=== PATIENT | female | born 1960 | race African-American/Black ===

== ENCOUNTER 2017-06-04 00:59 | Observation (INO) | payer BC ==
[~2017-06-04] VITALS: Ht 162.6 cm; Wt 100.0 kg
--- NOTE | ~2017-06-04 | HEMODYNAMI ---
PATIENT:JAYSHREE SMITH MEDICAL RECORD: [id number] : 64 [facility] AD[facility]ION DATE: 06/04/17 Generatedon:06/04/201715:43 Patient name: JAYSHREE SMITH Patient #: [id number] SSN: : 1960 Date of study: 06/04/2017 Page: Of Hemodynamic Procedure Report Patient Data Patient Demographics Procedure consent was obtained First Name: JAYSHREE Gender: Female Last Name: LUIS : 1960 [facility] Initial: D Age: 56 year(s) Patient #: [id number] Race: Black Additional ID: [id number] Contact details [address]: [address] [place] [address] State: [place] City: [place] Zip code: [address] Past Medical History Allergies Allergen Reaction Date Comments Reported Codeine 06/04/2017 Erythromycin 06/04/2017 Other allergy 06/04/2017 ultra Admission Admission Data Admission Date: 06/04/2017 Admission Time: 2:48 Room #: D.2115 Lab Results Lab Result Date: 06/04/2017 Lab Result Time: 0:00 Biochemistry Name Units Result Min Max BUN mg/dl 16 --(---*)-- 7 18 Creatinine mg/dl 0.7 --(*---)-- 0.6 1.3 CBC Name Units Result Min Max Hemoglobin g/dl 12.1 *-(----)-- 13.5 17.5 Procedure Procedure Types Cath Procedure Diagnostic Procedure LHC LHC w/Coronaries Miscellaneous Procedures Moderate Sedation up to 15 minutes Procedure Description Procedure Date Procedure Date: 06/04/2017 Procedure Start Time: 15:23 Procedure End Time: 15:42 Procedure Staff Name Function Gustavo Alexander MD Performing Physician Cathy Brown RN Nurse Jamir Harrington RT Monitor Carter Marroquin RT Scrub Procedure Data Cath Procedure Fluoroscopy Diagnostic fluoroscopy Total fluoroscopy Time: 1.1 time: 1.1 min min Diagnostic fluoroscopy Total fluoroscopy dose: 380 dose: 380 mGy mGy Contrast Material Contrast Material Type Amount (ml) Isovue 300 55 Entry Location Entry Primary Successful Side Size Upsize Upsize Entry Closure Succes sful Closure Location (Fr) 1 (Fr) 2 (Fr) Remarks Device Remarks Femoral Right 5 Fr Exoseal artery Diagnostic catheters Device Type Used For End Catheter Placement Cordis 5Fr JL 4.0 Left Coronary Catheter (MP) Angiography Cordis 5Fr 3DRC Catheter Right Coronary (MP) Angiography Cordis 5Fr Pigtail LV Angiography Catheter (MP) Procedure Complications No complications Procedure Medications Medication Administration Route Dosage Oxygen NC 2 l/min Lidocaine 2% added to field 20 Heparin Flush Bag added to field 2 bags (1000units/500ml NS) 0.9% NaCl I.V. 100 ml/hr Benadryl I.V. 25 mg Versed I.V. 0.5 mg Fentanyl I.V. 25 mcg Versed I.V. 0.5 mg Fentanyl I.V. 25 mcg Versed I.V. 0.5 mg Fentanyl I.V. 25 mcg Versed I.V. 0.5 mg Fentanyl I.V. 25 mcg Hemodynamics Rest HGB: 12.1 (g/dl) Heart Rate: 82 (bpm) Pressure Samples Time Site Value (mmHg) Purpose Heart Use Rate(bpm) 15:33 LV 132/-6,20 EDP 88 15:33 LV 127/-4,21 Snapshot 81 15:33 LV 126/-4,21 Snapshot 81 15:34 AO 135/73(100) Pullback 87 15:34 LV 139/-5,30 Pullback 87 Gradients Valve Time Site 1 Site 2 Mean SEP/DFP Peak To Heart Use (mmHg) (sec/min) Peak Rate (mmHg) (bpm) Aortic 15:34 LV AO 12 19 4 87 139/-5,30 135/73(100) Calculations Valve P-P Mean Valve Index Valve Source Name Gradient Area Flow (cm2) Aortic 4 12 4 12 Snapshots Pre Cath Intra NCS Post Cath Vital Signs Time Heart Resp SPO2 etCO2 [id number] NIBP (mmHg) Rhythm Pain Sedation Rate (ipm) (%) (mmHg) (mmHg) Status Level (bpm) 15:13:42 78 15 100 0 0 146/83(102) NSR 0 (11) 10(A) , No pain 15:17:54 83 16 100 0 0 160/90(109) NSR 0 (11) 10(A) , No pain 15:20:54 83 17 97 0 0 143/73(106) NSR 0 (11) 10(A) , No pain 15:25:06 76 15 100 0 0 149/83(100) NSR 0 (11) 9(A) , No pain 15:29:24 83 15 100 0 0 138/75(102) NSR 0 (11) 9(A) , No pain 15:33:40 87 16 100 0 0 142/71(102) NSR 0 (11) 10(A) , No pain 15:37:54 82 15 100 0 0 131/76(102) NSR 0 (11) 10(A) , No pain 15:42:02 100 0 0 146/84(96) NSR 0 (11) 10(A) , No pain Medications Time Medication Route Dose Verified Delivered Reason Notes Effe ctiveness by by 15:14:12 Oxygen NC 2 Gustavo Buffie used for l/min Benjamin Brown RN procedure 15:14:20 Lidocaine 2% added 20ml Gustavo Gustavo for local to vial Benjamin Alexander MD anesthetic field 15:14:26 Heparin Flush added 2 Gustavo Gustavo used for Bag to bags Benjamin Alexander MD procedure (1000units/500ml field NS) 15:14:35 0.9% NaCl I.V. 100 Gustavo Buffie Per ml/hr Benjamin Brown RN physician 15:14:51 Benadryl I.V. 25 mg Gustavo Buffie used for Benjamin Brown RN procedure 15:18:29 Versed I.V. 0.5 Gustavo Buffie for mg Benjamin Brown RN sedation 15:18:37 Fentanyl I.V. 25 Gustavo Buffie for mcg Benjamin Brown RN sedation 15:24:22 Versed I.V. 0.5 Gustavo Buffie for mg Benjamin Brown RN sedation 15:24:25 Fentanyl I.V. 25 Gustavo Buffie for mcg Benjamin Brown RN sedation 15:29:34 Versed I.V. 0.5 Gustavo Buffie for mg Benjamin Brown RN sedation 15:29:38 Fentanyl I.V. 25 Gustavo Buffie for mcg Benjamin Brown RN sedation 15:32:51 Versed I.V. 0.5 Gustavo Buffie for mg Benjamin Brown RN sedation 15:32:55 Fentanyl I.V. 25 Gustavo Morgan for mcg Benjamin Brown RN sedation Procedure Log Time Note 14:40:00 Carter Cara RT(R) sent for patient. Start room use. 14:45:03 Time tracking: Regular hours 14:45:09 Plan of Care:Hemodynamics will remain stable., Cardiac rhythm will remain stable., Comfort level will be maintained., Respiratory function will remain adequate., Patient/ family verbilizes understanding of procedure., Procedure tolerated without complication., Recovers from procedure without complications.. 15:02:51 Patient received from PCU to CCL 1 Alert and oriented. Tansferred to table in Supine position. 15:02:52 Warm blankets applied, and valarie hugger turned on for patient comfort. 15:02:53 Correct patient and procedure confirmed by team. 15:02:54 Signed procedure consent form obtained from patient. 15:02:55 ECG and BP/O2 sat monitors applied to patient. 15:12:34 Baseline sample Acquired. 15:12:34 Vital chart was started 15:12:37 Rhythm: sinus rhythm 15:12:38 Full Disclosure recording started 15:13:56 H&P Date Dictated: 06/04/2017 Within 30 days and on chart.. 15:13:58 Pre-procedure instructions explained to patient. 15:13:58 Pre-op teaching completed and patient verbalized understanding. 15:14:01 Family in waiting room. 15:14:03 Patient NPO since Midnight. 15:14:12 Oxygen 2 l/min NC was administered by Cathy Brown RN; used for procedure; 15:14:12 Patient allergic to Codeine 15:14:20 Lidocaine 2% 20ml vial added to field was administered by Gustavo Alexander MD; for local anesthetic; 15:14:26 Heparin Flush Bag (1000units/500ml NS) 2 bags added to field was administered by Gustavo Alxeander MD; used for procedure; 15:14:27 Patient allergic to Erythromycin 15:14:35 0.9% NaCl 100 ml/hr I.V. was administered by Cathy Brown RN; Per physician; 15:14:46 Patient allergic to Other allergyultram 15:14:50 Is the patient allergic to Iodine/contrast media? No. 15:14:51 Benadryl 25 mg I.V. was administered by Cathy Brown RN; used for procedure; 15:15:01 Is patient on blood thinner?No 15:15:03 Patient diabetic? No. 15:15:04 ----Pre-sedation anethsthesia assessment.---- 15:15:06 Previous problem with sedation/anesthesia? No ? 15:15:08 Snore? Yes 15:15:09 Sleep apnea? No 15:15:11 Deviated septum? No 15:15:12 Opens mouth fully? Yes 15:15:14 Sticks out tongue? Yes 15:15:16 Airway obstruction? No ? 15:15:20 Dentures? No ? 15:15:24 Pre procedure: right dorsailis pedis pulse 1+ Palpable, but thready & weak; easily obliterated 15:15:28 Patient pain scale 0/10 ?. 15:15:34 IV patent on arrival in right antecubital with 0.9% NaCl at 10ml/hr. 15:15:59 Lab Result : Creatinine 0.7 mg/dl 15:15:59 Lab Result : BUN 16 mg/dl 15:15:59 Lab Result : Hemoglobin 12.1 g/dl 15:16:02 Lab results completed and on chart. 15:16:05 Right groin area was prepped with chlora-prep and draped in sterile fashion 15:16:06 Alarms reviewed by R. N. 15:16:06 Sharps counted by scrub and verified by R.N. 15:16:09 --------ALL STOP TIME OUT------ 15:16:09 Final Timeout: patient, procedure, and site verified with staff and physician. All members of the team are in agreement. 15:16:11 Right groin site verified by team. 15:16:13 Physical assessment completed. ASA score P 2 - A patient with mild systemic disease as per Gustavo Alexander MD. 15:16:17 Sedation plan: IV Moderate Sedation Versed, Fentanyl 15:18:29 Versed 0.5 mg I.V. was administered by Cathy Brown RN; for sedation; 15:18:37 Fentanyl 25 mcg I.V. was administered by Cathy Brown RN; for sedation; 15:22:52 Zero performed for pressure channel P1 15:23:15 Use device set Femoral Dx 15:23:16 Acist Syringe opened to sterile field. 15:23:17 Bag Decanter opened to sterile field. 15:23:17 Medline Cath Pack opened to sterile field. 15:23:17 Terumo 5Fr Mercer Sheath opened to sterile field. 15:23:18 St Jevon 260cm J .035 wire opened to sterile field. 15:23:19 Acist Hand Control opened to sterile field. 15:23:19 Acist Manifold opened to sterile field. 15:23:20 Diagnostic Infinity 5Fr Multipack catheter opened to sterile field. 15:23:20 Tegaderm 4 x 4 opened to sterile field. 15:23:24 Procedure started. 15:23:28 Local anesthetic to right femoral artery with Lidocaine 2% by Gustavo Alexander MD.INITIAL ACCESS ONLY 15:23:37 A 5 Fr sheath was inserted into the Right Femoral artery 15:24:00 A Cordis 5Fr JL 4.0 Catheter (MP) was advanced over the wire and used for Left Coronary Angiography. 15:24:22 Versed 0.5 mg I.V. was administered by Cathy Brown RN; for sedation; 15:24:22 LCA angiography performed. 15:24:25 Fentanyl 25 mcg I.V. was administered by Cathy Brown RN; for sedation; 15:29:34 Versed 0.5 mg I.V. was administered by Cathy Brown RN; for sedation; 15:29:38 Fentanyl 25 mcg I.V. was administered by Cathy Brown RN; for sedation; 15:31:03 Catheter removed. 15:31:45 A Cordis 5Fr 3DRC Catheter (MP) was advanced over the wire and used for Right Coronary Angiography. 15:32:09 RCA angiography performed. 15:32:10 Catheter removed. 15:32:16 A Cordis 5Fr Pigtail Catheter (MP) was advanced over the wire and used for LV Angiography. 15:32:20 LV angiography performed. 15:32:22 LV gram done using RIGGS 15:32:25 LV hemodynamics recorded. 15:32:29 Injector settings: Ml/sec: 10, Volume: 20, 15:32:51 Versed 0.5 mg I.V. was administered by Cathy Brown RN; for sedation; 15:32:55 Fentanyl 25 mcg I.V. was administered by Cathy Brown RN; for sedation; 15:33:47 EF : 55 % 15:34:08 Catheter removed. 15:36:02 Contrast amount:Isovue 300 55ml. 15:36:40 Sheath removed intact; hemostasis achieved with Exoseal to the Right Femoral artery. 15:36:43 Procedure ended.(Physican Out) 15:37:12 Fluoroscopy time 01.10 minutes. 15:37:17 Fluoroscopy dose: 380 mGy 15:37:17 Flurop Dose total: 380 15:37:22 Sharps counted by scrub and verified by R.N. 15:37:23 Insertion/operative site no bleeding no hematoma. 15:37:26 Post-op/insertion site Right Femoral artery dressed using a 4 x 4 and Tegaderm. 15:37:29 Post right femoral artery:stable 15:37:36 Post Procedure Pulses reassessed and unchanged 15:37:38 Post procedure: right dorsailis pedis pulse 1+ Palpable, but thready & weak; easily obliterated. 15:37:54 Post procedure rhythm: sinus rhythm 15:42:10 Post procedure instruction explained to patient.Patient verbalizes understanding. 15:42:12 Procedure and supply charges have been captured, reviewed, submitted and are correct. 15:42:23 Cordis 5Fr Exoseal opened to sterile field. 15:42:29 Procedure Complication : No complications 15:42:32 Vital chart was stopped 15:42:33 See physician's report for complete and final results. 15:42:35 Report given to PCU. 15:42:37 Patient transfered to PCU with Bed. 15:42:39 Procedure ended. 15:42:39 Full Disclosure recording stopped 15:42:43 End room use (Document Last) Device Usage Item Name Manufacture Quantity Catalog Hospital Part Current Minimal Lo t# / Number Charge Number Stock Stock Serial# Code Acist Acist 1 31312 [id number] 053511 606697 20 Syringe [employer] Bag Microtek 1 2002S [id number] 40112 430078 5 Decanter [employer] Medline Cardinal 1 [id number] 34566 892652 5 Cath Pack CombaGroup Terumo 5Fr Terumo 1 [id number] 816812 809244 609293 [address] Jevon 1 434274 438107 771949 897029 30 260cm J .035 wire Acist Hand Acist 1 61326 690257 369841 641564 5 Control [employer] Inc Acist Acist 1 15188 601869 409503 829894 5 Manifold [employer] Diagnostic Cardinal 1 [id number] 553915 79788 931208 30 Inf[employer] 5Fr Multipack catheter Tegaderm 4 3M 1 1626W 513708 154080 936176 5 x 4 Cordis 5Fr Cardinal 1 926364 5 JL 4.0 Health Catheter (MP) Cordis 5Fr Cardinal 1 700972 5 3DRC Health Catheter (MP) Cordis 5Fr Cardinal 1 960750 5 Pigtail Health Catheter (MP) Cordis 5Fr Cardinal 1 EX500 374840 631824 481023 10 [employer] Signature Audit [place] Stage Time Signature Unsigned Intra-Procedure 06/04/2017 Jamir Harrington 3:43:41 PM RT(R) Signatures Monitor : Jamir Harrington RT Signature : Date : Time : [place] [id number] [facility] [place] [address]
[~2017-06-04 00:59] MED LIST: HYZAAR 50-12.51 TAB PO; LEVSIN/ANASP0.125 MG PO; ZOVIRAX400 MG
[2017-06-04 01:55] LABS: HEMATOCRIT 37.5 % (36.0-48.0); HEMOGLOBIN 12.1 g/dL (12-16); MCH 30.4 pg (26.0-34.0); MCHC 32.3 g/dL (31.0-37.0); MCV 94.2 fL (80.0-100.0); MEAN PLATELET VOLUME 10.4 fL (7.4-10.4); PLATELET COUNT 295 10x3/uL (130-400); RBC 3.98 10x6/uL (4.00-5.40); RDW 12.8 % (11.5-14.5); WBC 7.4 10x3/uL (4.8-10.8)
[2017-06-04 02:04] LABS: ALBUMIN 3.4 g/dL (3.4-5.0); ALKALINE PHOSPHATASE 71 U/L (46-116); ALT (SGPT) 21 U/L (10-68); BILIRUBIN - TOTAL 0.35 mg/dL (0.2-1.3); CALC OSMOLALITY 278 mosm/kg (275-300); CALCIUM 9.3 mg/dL (8.5-10.1); CARBON DIOXIDE 29.1 mmol/L (21.0-32.0); CHLORIDE - SERUM 102 mmol/L (98-107); CREATININE - SERUM 0.7 mg/dL (0.6-1.3); GLUCOSE 86 mg/dL (74-106); POTASSIUM - SERUM 3.8 mmol/L (3.5-5.1); PROTEIN - SERUM 7.5 g/dL (6.4-8.2); SODIUM 140 mmol/L (136-145); UREA NITROGEN 16 mg/dL (7-18); eGFR NON AFRICAN AMERICAN > 90 mL/min (90-120)
[2017-06-04 02:15] LABS: CHOL - HDL RATIO 3.7 ratio (2.3-4.1); CHOLESTEROL, TOTAL 215 mg/dL (0-200); CKMB 1.9 U/L (0.0-3.6); CREATINE KINASE 240 UL (21-215); HDL CHOLESTEROL 58 mg/dL (32-96); LDL CHOLESTEROL 128 mg/dL (0-100); LDL-HDL RATIO 2.2 ratio (1.5-3.5); PRO BNP 41 pg/mL (0-125); TRIGLYCERIDE 146 mg/dL (30-200)
[2017-06-04 02:16] LABS: EOSINOPHILS 1 % (0-7); LYMPHOCYTES 51 % (15-50); MONOCYTES 5 % (2-11); NEUTROPHILS 43 % (40-80); PLATELET ESTIMATE NORMAL
[2017-06-04 02:18] LABS: TROPONIN-I < 0.017 ng/mL (0.000-0.060)
[2017-06-04] MEDS ORDERED: BAYER CHEWABLE81 MG PO (04:25)
[2017-06-04] MEDS ORDERED: HYZAAR 100-25 T1 TAB PO (04:25)
[2017-06-04 04:33] VITALS: BP 124/68; Ht 162.6 cm; Wt 100.0 kg
--- NOTE | 2017-06-04 04:42 | NUR ---
ARRIVED FROM ER VIA WC. MONITOR ON WITH SR @ 67. WARM AND DRY. NO SOB. NO DISTRESS. WILL CONTINUE TO MONITOR.
--- NOTE | 2017-06-04 05:19 | NUR ---
PT REFUSED IV FLUID. ALSO REFUSED SCDS.
[2017-06-04 08:19] VITALS: BP 142/83
--- NOTE | 2017-06-04 09:20 | NUR ---
TELEMETRY SR. NO C/O C/P NOTED. NPO FOR [facility]. CONSENTS SIGNED. WILL CONT. PLAN OF CARE.
[2017-06-04 12:05] VITALS: BP 123/73
--- NOTE | 2017-06-04 14:57 | NUR ---
PRE-OPS GIVEN. 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
[2017-06-04 15:13] VITALS: BP 119/71
--- NOTE | 2017-06-04 16:01 | NUR ---
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 VS WNL. RIGHT GROIN STABLE WITHOUT BLEEDING OR HEMATOMA NOTED. WILL MONITOR.
--- NOTE | 2017-06-04 17:45 | NUR ---
BED REST UP. GROIN STABLE.
--- NOTE | 2017-06-04 18:47 | NUR ---
IV AND TELEMETRY DCD. DC PLANS GIVN. UNDERSTANDING VOICED. ESCORTED TO CAR BY W/C.
== END 2017-06-04 18:48 | disposition home or self-care (01) ==
LOC: D.ER 00:59 → OBSVTIME 02:48 → D.M2 02:48
PROVIDERS: Emergency Medicine; ADMIT Internal Medicine Cardiovascular Disease
DX: R07.89 Other chest pain (principal); I10 Essential (primary) hypertension; K21.9 Gastro-esophageal reflux disease without esophagitis

== ENCOUNTER → 2017-09-04 14:25 | Outpatient (CLI) | payer BC ==
[2017-06-04 04:33] VITALS: BMI 37.8
[~2017-09-04 14:25] MED LIST changes: +BAYER CHEWABLE81 MG PO; +HYZAAR 100-25 T1 TAB PO
== END | disposition home or self-care (01) ==
LOC: D.MAMMO 13:15
DX: Z12.31 Encounter for screening mammogram for malignant neoplasm of breast (principal)

== ENCOUNTER 2019-08-20 08:00 | Outpatient (CLI) | payer BC ==
[2017-06-04 04:33] VITALS: BMI 37.8
== END 2019-08-20 23:59 | disposition home or self-care (01) ==
LOC: D.MAMMO 08:00
PROVIDERS: ATTEND Family Medicine
DX: Z12.31 Encounter for screening mammogram for malignant neoplasm of breast (principal)

== ENCOUNTER 2021-03-13 14:00 | Outpatient (CLI) | payer BC ==
[2017-06-04 04:33] VITALS: BMI 37.8
== END 2021-03-13 23:59 | disposition home or self-care (01) ==
LOC: D.MAMMO 14:00
PROVIDERS: ATTEND Family Medicine
DX: Z12.31 Encounter for screening mammogram for malignant neoplasm of breast (principal)